=== PATIENT | male | born 1990 | race Two or more races ===

== ENCOUNTER → 2020-07-04 | Outpatient (CLI) | payer MEDICAID | END | disposition home or self-care (01) | LOC: CVU 10:07 | PROVIDERS: ATTEND Internal Medicine Nephrology | DX: I08.8 Other rheumatic multiple valve diseases (principal); R94.4 Abnormal results of kidney function studies; D63.1 Anemia in chronic kidney disease; E87.5 Hyperkalemia; N18.6 End stage renal disease; Z94.0 Kidney transplant status; N25.0 Renal osteodystrophy; Z99.2 Dependence on renal dialysis | CPT/HCPCS: 93306; 93356 ==

== ENCOUNTER → 2020-07-11 | Outpatient (CLI) | payer BC, MEDICAID ==
[~2020-07-11] MED LIST: AMLO-150 PO; AMOX1TAB61 PO; CALC0.25 PO; CALC200T24 PO; ERGO500017 PO; FERR-51 PO; FURO40TA6 PO; GABA300C10 PO; OMNIPAQUE 350 MG/ML, 100ML BOTTLE ONE; REGADENOSON 0.4 MG/5 ML SYRINGE ONE; SEVE800T8 PO; SIMV20TA19 PO; SODI10PO PO; sodium bicarbonate PO
== END | disposition home or self-care (01) ==
LOC: CFH 07:59
PROVIDERS: ATTEND Internal Medicine Nephrology
DX: I21.19 ST elevation (STEMI) myocardial infarction involving other coronary artery of inferior wall (principal); D63.1 Anemia in chronic kidney disease; N18.6 End stage renal disease; N25.0 Renal osteodystrophy; E87.5 Hyperkalemia; R94.4 Abnormal results of kidney function studies; I25.89 Other forms of chronic ischemic heart disease; Z94.0 Kidney transplant status; Z99.2 Dependence on renal dialysis
CPT/HCPCS: 72191; 78452; 82565; 93017; A9502; J2785; Q9967

== ENCOUNTER 2020-09-28 16:54 | Inpatient (IN) | payer MEDICAID ==
[~2020-09-28] VITALS: Ht 167.6 cm; Wt 80.5 kg
[~2020-09-28 16:54] MED LIST changes: -OMNIPAQUE 350 MG/ML, 100ML BOTTLE ONE; -REGADENOSON 0.4 MG/5 ML SYRINGE ONE
--- NOTE | 2020-09-28 17:47 | NUR ---
PT AWAITING EVAL BY PROVIDER FOR REPORTED LESION ON SCROTUM. NO DISTRESS AT THIS TIME
[2020-09-28] MEDS ORDERED: MORPHINE SULFATE 4 MG/ML, 1ML ONE (18:18)
--- NOTE | 2020-09-28 18:25 | NUR ---
PIV PLACED, LABS DRAWN AND SENT WITH LAB SLIP. SAFETY ADVISOR PER AUG. PT STATES PAIN HAS DECREASED. PT CONNECTED TO MONITORING. CALL LIGHT IN REACH.
[2020-09-28] MEDS ORDERED: MORPHINE SULFATE 4 MG/ML, 1ML IVPush PRN (18:30)
[2020-09-28] MEDS ORDERED: SODIUM CHLORIDE FLUSH 10ML SYR IVF ONE (18:30)
--- NOTE | 2020-09-28 18:33 | NUR ---
PT GOING TO US.
[2020-09-28 18:36] LABS: BASOPHILS % (AUTO) 1 % (0-1); EOSINOPHILS % (AUTO) 5 % (1-7); LYMPHOCYTES % (AUTO) 16 % (22-44); MEAN CORPUSCULAR HEMOGLOBIN 31.5 pg (27.5-34.5); MEAN CORPUSCULAR HGB CONC 33.4 g/dL (33.2-36.2); MEAN PLATELET VOLUME 6.6 fL (7.4-10.4); MONOCYTES % (AUTO) 7 % (2-9); NEUTROPHILS % (AUTO) 72 % (42-75); PLATELET COUNT 286 x10^3/uL (130-400); RED BLOOD COUNT 4.11 x10^6/uL (4.38-5.82); RED CELL DISTRIBUTION WIDTH 15.2 % (9.4-14.8)
[2020-09-28 18:37] LABS: MD NO
[2020-09-28 18:50] LABS: ALANINE AMINOTRANSFERASE 20 U/L (12-78); ALBUMIN 3.3 g/dL (3.4-5.0); ANION GAP 7 mmol/L (5-15); CALCIUM 8.6 mg/dL (8.5-10.1); CHLORIDE 102 mmol/L (98-107); CREATININE 8.01 mg/dL (0.7-1.3)
[2020-09-28 18:52] LABS: ALKALINE PHOSPHATASE 109 U/L (45-117); BILIRUBIN,TOTAL 0.7 mg/dL (0.2-1.0); TOTAL PROTEIN 7.5 g/dL (6.4-8.2)
--- NOTE | 2020-09-28 19:00 | NUR ---
ALL RESULTS ARE BACK AT THIS TIME. CHART UP FOR RECHECK.
--- NOTE | 2020-09-28 19:05 | NUR ---
PT STATES PAIN IS BETTER.
[2020-09-28] MEDS ORDERED: VANCOMYCIN PER PHARMACY MC ONE (19:47)
--- NOTE | 2020-09-28 19:51 | NUR ---
LEAH PAGED UROLOGY FOR CONSULT.
--- NOTE | 2020-09-28 19:57 | NUR ---
ERMD AT BEDSIDE TO UPDATE PT ON POC.
[2020-09-28] MEDS ORDERED: VANCOMYCIN 1,900 MG in SODIUM CHLORIDE 0.9% 250 ML IV ONE (20:00)
--- NOTE | 2020-09-28 20:18 | NUR ---
PT AT CT
--- NOTE | 2020-09-28 20:33 | NUR ---
REPORT GIVEN TO [employer]S CATAL[employer]. OR TO GET PT ABOUT 2100.
--- NOTE | 2020-09-28 20:43 | NUR ---
IV VANCO STARTED PER AUG. PT HAS BEEN UPDATED AGAIN BY ERMD ON POC.
[2020-09-28] MEDS ORDERED: HYDROmorphone 1 MG/ML, 1ML INJ IVPush PRN (21:00)
[2020-09-28] MEDS ORDERED: FENTANYL PF 100 MCG/2ML IV PRN (21:00)
[2020-09-28] MEDS ORDERED: OXYcodone 5 MG/5 ML ORAL.SOL UDC PO PRN (21:00)
[2020-09-28] MEDS ORDERED: BUPIVACAINE/PF 0.5% INFIL ONE (21:00)
[2020-09-28] MEDS ORDERED: hydrALAzine 20 MG/ML, 1ML IV PRN (21:00)
[2020-09-28] MEDS ORDERED: LABETALOL 5MG/ML, 20ML IV PRN (21:00)
[2020-09-28] MEDS ORDERED: OMNIPAQUE 350 MG/ML, 100ML BOTTLE ONE (21:00)
[2020-09-28] MEDS ORDERED: ONDANSETRON 2MG/ML, 2ML IVPush PRN ×2 (21:00→22:00)
[2020-09-28] MEDS ORDERED: PROMETHAZINE 25 MG/ML, 1ML IVPush PRN (21:00)
[2020-09-28] MEDS ORDERED: FENTANYL PF 250 MCG/5ML ONE (21:01)
[2020-09-28] MEDS ORDERED: PROPOFOL 10 MG/ML, 20ML ONE (21:02)
[2020-09-28] MEDS ORDERED: SUCCINYLCHOLINE 20 MG/ML, 10ML ONE (21:02)
[2020-09-28] MEDS ORDERED: ONDANSETRON 2MG/ML, 2ML ONE (21:03)
--- NOTE | 2020-09-28 21:09 | NUR ---
REPORT FROM MARIA DE JESUS RIZOPASTER SUPERVISOR OF CARE AT THIS TIME
[2020-09-28] MEDS ORDERED: DIPHENHYDRAMINE 50 MG/ML, 1ML ONE (21:43)
[2020-09-28] MEDS ORDERED: ROCURONIUM 10MG/ML,5ML ONE ×2 (21:59)
[2020-09-28] MEDS ORDERED: ACETAMINOPHEN 325 MG TABLET PO PRN (22:00)
[2020-09-28] MEDS ORDERED: BISACODYL 10 MG SUPP PR PRN (22:00)
[2020-09-28] MEDS ORDERED: VANCOMYCIN PER PHARMACY MC PRN (22:00)
[2020-09-28] MEDS: SODIUM CHLORIDE FLUSH 10ML SYR IVF SCH (22:00)
[2020-09-28] MEDS ORDERED: GABAPENTIN 300 MG CAPSULE PO PRN (22:00)
[2020-09-28] MEDS ORDERED: POLYETHYLENE GLYCOL 17 GM PACKET PO PRN (22:00)
[2020-09-28] MEDS ORDERED: PHARMACOKINETIC CONSULTATION MC ONE (22:00)
[2020-09-28] MEDS ORDERED: morphine SULFATE 10 MG/ML, 1ML IVPush PRN (22:00)
[2020-09-28] MEDS ORDERED: PHARMACOKINETIC MONITORING MC PRN (22:00)
[2020-09-28] MEDS ORDERED: OXYcodone 5 MG/5 ML ORAL.SOL UDC ONE (22:07)
[2020-09-28] MEDS ORDERED: FENTANYL PF 100 MCG/2ML ONE (22:07)
[2020-09-28] MEDS ORDERED: DEXAMETHASONE 4 MG/ML, 1ML ONE (22:08)
[2020-09-28] MEDS ORDERED: EPHEDRINE 50 MG/ML, 1ML ONE (22:08)
[2020-09-28] MEDS ORDERED: EPINEPHRINE 1 MG/ML, 1ML ONE (22:20)
[2020-09-28] MEDS: PIPERACILLIN/TAZO 2.25 GM in DEXTROSE 5% 50 ML IV SCH (23:35)
[2020-09-29 00:17] VITALS: BP 139/87
[2020-09-29] MEDS: PIPERACILLIN/TAZO 2.25 GM in DEXTROSE 5% 50 ML IV SCH ×3 (04:13→17:54)
[2020-09-29 04:57] LABS: BASOPHILS % (AUTO) 1 % (0-1); EOSINOPHILS % (AUTO) 0 % (1-7); LYMPHOCYTES % (AUTO) 5 % (22-44); MEAN CORPUSCULAR HEMOGLOBIN 31.2 pg (27.5-34.5); MEAN CORPUSCULAR HGB CONC 32.7 g/dL (33.2-36.2); MEAN PLATELET VOLUME 6.6 fL (7.4-10.4); MONOCYTES % (AUTO) 1 % (2-9); NEUTROPHILS % (AUTO) 94 % (42-75); PLATELET COUNT 277 x10^3/uL (130-400); RED BLOOD COUNT 4.03 x10^6/uL (4.38-5.82); RED CELL DISTRIBUTION WIDTH 15.3 % (9.4-14.8)
[2020-09-29 05:02] LABS: ANION GAP 10 mmol/L (5-15); CALCIUM 7.7 mg/dL (8.5-10.1); CHLORIDE 102 mmol/L (98-107); CREATININE 8.21 mg/dL (0.7-1.3)
[2020-09-29 05:54] LABS: MD SCAN
[2020-09-29] MEDS: FERROUS SULFATE 325 MG TABLET PO SCH ×2 (08:46→17:54)
[2020-09-29] MEDS: SEVELAMER CARBONATE 800MG TAB PO SCH ×3 (08:46→17:54)
[2020-09-29] MEDS: AMLODIPINE 5 MG TABLET PO SCH ×2 (08:46→21:47)
[2020-09-29] MEDS: SENNA/DOCUSATE TABLET PO SCH (08:46)
[2020-09-29] MEDS: SODIUM CHLORIDE FLUSH 10ML SYR IVF SCH ×2 (08:47→21:00)
[2020-09-29 09:03] VITALS: BP 141/91
[2020-09-29 12:03] LABS: CALCIUM 7.8 mg/dL (8.5-10.1)
[2020-09-29 15:01] VITALS: BP 118/73
[2020-09-29] MEDS ORDERED: GENTAMICIN CRM 0.1%, 30GM TP SCH (18:30)
[2020-09-29 20:03] VITALS: BP 121/75
[2020-09-30] MEDS: PIPERACILLIN/TAZO 2.25 GM in DEXTROSE 5% 50 ML IV SCH ×5 (00:35→23:56)
[2020-09-30 01:05] VITALS: BP 121/74
[2020-09-30 04:51] LABS: BASOPHILS % (AUTO) 0 % (0-1); EOSINOPHILS % (AUTO) 3 % (1-7); LYMPHOCYTES % (AUTO) 22 % (22-44); MEAN CORPUSCULAR HGB CONC 32.7 g/dL (33.2-36.2); MEAN PLATELET VOLUME 6.4 fL (7.4-10.4); MONOCYTES % (AUTO) 7 % (2-9); NEUTROPHILS % (AUTO) 68 % (42-75); PLATELET COUNT 276 x10^3/uL (130-400); RED BLOOD COUNT 3.51 x10^6/uL (4.38-5.82); RED CELL DISTRIBUTION WIDTH 15.3 % (9.4-14.8)
[2020-09-30 04:52] LABS: MD NO
[2020-09-30 05:03] LABS: CHLORIDE 98 mmol/L (98-107)
[2020-09-30 05:10] LABS: ALANINE AMINOTRANSFERASE 13 U/L (12-78); ALBUMIN 2.7 g/dL (3.4-5.0); ALKALINE PHOSPHATASE 78 U/L (45-117); ANION GAP 12 mmol/L (5-15); BILIRUBIN,TOTAL 0.7 mg/dL (0.2-1.0); CALCIUM 7.7 mg/dL (8.5-10.1); TOTAL PROTEIN 6.2 g/dL (6.4-8.2); VANCOMYCIN,RANDOM 29.5 mcg/mL
[2020-09-30] MEDS: AMLODIPINE 5 MG TABLET PO SCH ×2 (08:27→20:56)
[2020-09-30] MEDS: SEVELAMER CARBONATE 800MG TAB PO SCH ×3 (08:27→16:20)
[2020-09-30] MEDS: FERROUS SULFATE 325 MG TABLET PO SCH ×2 (08:28→16:20)
[2020-09-30] MEDS: SENNA/DOCUSATE TABLET PO SCH (08:28)
[2020-09-30] MEDS: SODIUM CHLORIDE FLUSH 10ML SYR IVF SCH ×2 (08:29→20:56)
[2020-09-30 08:35] VITALS: BP 144/87
[2020-09-30] MEDS ORDERED: ARANESP 60 MCG/ML **ESRD SQ SCH (11:30)
[2020-09-30 13:50] VITALS: BP 128/80
[2020-09-30 19:56] VITALS: BP 135/87
[2020-10-01 00:41] VITALS: BP 135/85
[2020-10-01 05:46] LABS: BASOPHILS % (AUTO) 1 % (0-1); EOSINOPHILS % (AUTO) 6 % (1-7); LYMPHOCYTES % (AUTO) 24 % (22-44); MEAN CORPUSCULAR HEMOGLOBIN 31.2 pg (27.5-34.5); MEAN CORPUSCULAR HGB CONC 33.2 g/dL (33.2-36.2); MEAN PLATELET VOLUME 6.2 fL (7.4-10.4); MONOCYTES % (AUTO) 8 % (2-9); NEUTROPHILS % (AUTO) 61 % (42-75); PLATELET COUNT 272 x10^3/uL (130-400); RED BLOOD COUNT 3.51 x10^6/uL (4.38-5.82); RED CELL DISTRIBUTION WIDTH 15.1 % (9.4-14.8)
[2020-10-01 05:49] LABS: MD NO
[2020-10-01 06:05] LABS: ALBUMIN 2.6 g/dL (3.4-5.0); ANION GAP 10 mmol/L (5-15); CALCIUM 7.6 mg/dL (8.5-10.1); CHLORIDE 100 mmol/L (98-107)
[2020-10-01] MEDS: PIPERACILLIN/TAZO 2.25 GM in DEXTROSE 5% 50 ML IV SCH ×3 (06:06→21:03)
[2020-10-01 07:45] VITALS: BP 148/86
[2020-10-01] MEDS: SODIUM CHLORIDE FLUSH 10ML SYR IVF SCH ×2 (07:53→21:00)
[2020-10-01] MEDS: SENNA/DOCUSATE TABLET PO SCH (07:53)
[2020-10-01] MEDS: AMLODIPINE 5 MG TABLET PO SCH ×2 (07:53→21:03)
[2020-10-01] MEDS: FERROUS SULFATE 325 MG TABLET PO SCH ×2 (07:53→17:48)
[2020-10-01] MEDS: SEVELAMER CARBONATE 800MG TAB PO SCH ×3 (07:53→17:48)
[2020-10-01 12:52] VITALS: BP 146/86
[2020-10-01 19:44] VITALS: BP 144/88
[2020-10-02 01:53] VITALS: BP 137/87
[2020-10-02] MEDS: PIPERACILLIN/TAZO 2.25 GM in DEXTROSE 5% 50 ML IV SCH (05:08)
[2020-10-02 05:13] LABS: BASOPHILS % (AUTO) 1 % (0-1); EOSINOPHILS % (AUTO) 5 % (1-7); LYMPHOCYTES % (AUTO) 18 % (22-44); MEAN CORPUSCULAR HEMOGLOBIN 31.3 pg (27.5-34.5); MEAN CORPUSCULAR HGB CONC 33.6 g/dL (33.2-36.2); MEAN PLATELET VOLUME 6.3 fL (7.4-10.4); MONOCYTES % (AUTO) 7 % (2-9); NEUTROPHILS % (AUTO) 69 % (42-75); PLATELET COUNT 281 x10^3/uL (130-400); RED BLOOD COUNT 3.59 x10^6/uL (4.38-5.82); RED CELL DISTRIBUTION WIDTH 15.2 % (9.4-14.8)
[2020-10-02 05:14] LABS: MD NO
[2020-10-02 05:24] LABS: ALBUMIN 2.8 g/dL (3.4-5.0); ANION GAP 11 mmol/L (5-15); CALCIUM 7.4 mg/dL (8.5-10.1); CHLORIDE 99 mmol/L (98-107)
[2020-10-02 05:27] LABS: VANCOMYCIN,RANDOM 22.4 mcg/mL
[2020-10-02 07:29] VITALS: BP 134/84
[2020-10-02] MEDS: SEVELAMER CARBONATE 800MG TAB PO SCH (08:19)
[2020-10-02] MEDS: AMLODIPINE 5 MG TABLET PO SCH (08:19)
[2020-10-02] MEDS: FERROUS SULFATE 325 MG TABLET PO SCH (08:19)
[2020-10-02] MEDS: SENNA/DOCUSATE TABLET PO SCH (08:19)
[2020-10-02] MEDS: SODIUM CHLORIDE FLUSH 10ML SYR IVF SCH (08:19)
[2020-10-02] MEDS ORDERED: METR500T PO (10:13)
[2020-10-02] MEDS ORDERED: SULF1TAB23 PO (10:13)
[2020-10-02 12:07] VITALS: BP 135/85
[2020-10-03] MEDS ORDERED: VANCOMYCIN 1,200 MG in SODIUM CHLORIDE 0.9% 250 ML IV ONE (05:00)
== END 2020-10-02 12:17 | disposition home or self-care (01) | DRG 853 ==
LOC: ED 18:38 → EDIP 21:46 → CCU 22:53 → 4NE 09-29 08:58 → DCLOUNGE 10-02 12:13
PROVIDERS: ADMIT Family Medicine; ATTEND Internal Medicine
PROC: 0V950ZZ Drainage of Scrotum, Open Approach (ICD-10-PCS; principal; 2020-09-28 21:30)
PROC: 3E1M39Z Irrigation of Peritoneal Cavity using Dialysate, Percutaneous Approach (ICD-10-PCS; 2020-09-29)
PROC: 3E1M39Z Irrigation of Peritoneal Cavity using Dialysate, Percutaneous Approach (ICD-10-PCS; 2020-09-30)
PROC: 3E1M39Z Irrigation of Peritoneal Cavity using Dialysate, Percutaneous Approach (ICD-10-PCS; 2020-10-01)
DX: A41.89 Other specified sepsis (principal); J12.82 Pneumonia due to coronavirus disease 2019; N18.6 End stage renal disease; U07.1 COVID-19; I13.2 Hypertensive heart and chronic kidney disease with heart failure and with stage 5 chronic kidney disease, or end stage renal disease; I50.22 Chronic systolic (congestive) heart failure; D64.9 Anemia, unspecified; E11.22 Type 2 diabetes mellitus with diabetic chronic kidney disease; E11.610 Type 2 diabetes mellitus with diabetic neuropathic arthropathy; E11.65 Type 2 diabetes mellitus with hyperglycemia; H54.62 Unqualified visual loss, left eye, normal vision right eye; N49.2 Inflammatory disorders of scrotum; N50.89 Other specified disorders of the male genital organs; Z78.9 Other specified health status; Z83.3 Family history of diabetes mellitus; Z99.2 Dependence on renal dialysis
CPT/HCPCS: 36415; 96374; 99291; S0020; 71045; 72193; 76857; 80048; 80053; 80069; 80202; 82306; 82310; 82330; 82962; 83036; 83735; 83970; 84100; 84550; 85025; 87040; 87070; 87075; 87077; 87081; 87205; 87635; 90945; G0378; J0171; J0882; J1100; J2405; J2543; J2704; J3010; J3370; Q9967; J0330; J1200; J2270; J7050; U0003

== ENCOUNTER 2020-12-21 15:44 | Emergency (ER) | payer MEDICAID ==
[~2020-12-21] VITALS: Ht 167.6 cm; Wt 78.4 kg
[~2020-12-21 15:44] MED LIST changes: +METR500T PO; +SULF1TAB23 PO
--- NOTE | 2020-12-21 17:05 | NUR ---
PT CAME IN CO PAIN IN HIS LOWER ABD THAT STARTED THIS MORNING AND HAS SINCE GOTTEN WORSE. PT PROVIDED UA. RESTING IN [facility]. AWAITING
[2020-12-21] MEDS ORDERED: SODIUM CHLORIDE FLUSH 10ML SYR IVF ONE (17:30)
[2020-12-21 17:43] LABS: MICROSCOPIC AUTO
[2020-12-21 17:48] LABS: BASOPHILS % (AUTO) 1 % (0-1); EOSINOPHILS % (AUTO) 5 % (1-7); LYMPHOCYTES % (AUTO) 21 % (22-44); MEAN CORPUSCULAR HGB CONC 34.1 g/dL (33.2-36.2); MEAN PLATELET VOLUME 6.5 fL (7.4-10.4); MONOCYTES % (AUTO) 9 % (2-9); NEUTROPHILS % (AUTO) 64 % (42-75); PLATELET COUNT 215 x10^3/uL (130-400); RED BLOOD COUNT 3.39 x10^6/uL (4.38-5.82); RED CELL DISTRIBUTION WIDTH 14.8 % (9.4-14.8)
[2020-12-21 17:59] LABS: ALANINE AMINOTRANSFERASE 52 U/L (12-78); ALBUMIN 3.1 g/dL (3.4-5.0); ANION GAP 7 mmol/L (5-15); CHLORIDE 104 mmol/L (98-107); CREATININE 8.99 mg/dL (0.7-1.3)
[2020-12-21 18:01] LABS: ALKALINE PHOSPHATASE 122 U/L (45-117); BILIRUBIN,TOTAL 0.7 mg/dL (0.2-1.0); TOTAL PROTEIN 6.6 g/dL (6.4-8.2)
--- NOTE | 2020-12-21 18:37 | NUR ---
engineering writer refusing to access patient peritoneal cath for sample. erp to bedside to obtain sample
[2020-12-21 19:00] VITALS: BP 145/87
== END 2020-12-21 20:27 | disposition home or self-care (01) ==
LOC: ED 20:19
DX: R10.2 Pelvic and perineal pain (principal); E11.9 Type 2 diabetes mellitus without complications; Z99.2 Dependence on renal dialysis
CPT/HCPCS: 36415; 80053; 81001; 83690; 85025; 87086; 99283